=== PATIENT | male | born 1965 | race Caucasian/White ===

== ENCOUNTER 2018-07-20 07:15 | Day surgery (SDC) | payer OTHER ==
[~2018-07-20 07:15] MED LIST: BISOPROLOL-HCT1 EACH PO; ZESTRIL2.5 MG PO
== END 2018-07-20 13:50 | disposition home or self-care (01) ==
LOC: CIR.AMB 07:15
DX: K64.8 Other hemorrhoids (principal)

== ENCOUNTER 2018-07-25 13:15 | Emergency (ER) | payer OTHER ==
[~2018-07-25] VITALS: Ht 167.6 cm; Wt 81.6 kg
[2018-07-25] MEDS ORDERED: TAMS0.4C PO (13:45)
[2018-07-25] MEDS ORDERED: BISOPROLOL FUMAR5 MG PO (13:45)
== END 2018-07-25 16:34 | disposition home or self-care (01) ==
LOC: ER 13:15
DX: R33.8 Other retention of urine (principal)